=== PATIENT | female | born 1990 ===

== ENCOUNTER 2024-11-19 06:50 | Inpatient (IN) | payer SELFPAY ==
[2024-11-19] MEDS ORDERED: Calcium Carbonate 500 MG Tab.Chew PO PRN (07:42)
[2024-11-19] MEDS ORDERED: Nalbuphine 10 MG/1 ML Vial IVPUSH PRN (07:42)
[2024-11-19] MEDS ORDERED: Sodium Chloride 0.9% 10 ML Syringe FLUSH PRN (07:42)
[2024-11-19] MEDS ORDERED: Ondansetron 4 MG/2 ML SDV IVPUSH PRN (07:42)
[2024-11-19] MEDS: Lactated Ringers 1,000 ML IV SCH (08:24)
[2024-11-19] MEDS: Oxytocin/0.9 % Sodium Chloride 30 UNIT/500 ML BAG IV SCH ×2 (08:28→19:00)
[2024-11-19 08:31] LABS: BASOPHILS PERCENT AUTO 0.4 % (0.0-1.0); EOSINOPHILS ABSOLUTE AUTO 0.1 K/mm3 (0.0-0.4); HEMATOCRIT 29.2 % (37.0-47.0); HEMOGLOBIN 9.2 gm/dl (12.0-16.0); IMMATURE GRAN ABSOLUTE AUTO 0.03 K/mm3 (0.00-0.05); IMMATURE GRAN PERCENT AUTO 0.6 % (0.0-0.4); LYMPHOCYTES ABSOLUTE AUTO 0.8 K/mm3 (1.0-4.8); MEAN CORPUSCULAR HEMOGLOBIN 24.1 pg (28.0-32.0); MEAN CORPUSCULAR HGB CONC 31.5 g/dl (32.0-36.0); MEAN CORPUSCULAR VOLUME 76.6 fl (83.0-99.0); MEAN PLATELET VOLUME 9.3 fl (9.4-12.3); MONOCYTES ABSOLUTE AUTO 0.3 K/mm3 (0.0-0.8); MONOCYTES PERCENT AUTO 6.5 % (0.0-8.0); NEUTROPHILS ABSOLUTE AUTO 3.8 K/mm3 (1.8-7.7); NEUTROPHILS PERCENT AUTO 74.5 % (41.0-71.0); PLATELET COUNT,PLT 240 K/mm3 (150-400); RED BLOOD CELL COUNT 3.81 M/mm3 (4.10-5.30); WHITE BLOOD CELL COUNT,WBC 5.05 K/mm3 (3.9-11.3)
[2024-11-19 14:47] LABS: C. TRACHOMATIS BY PCR NOT DETECTED; N. GONORRHOEAE BY PCR NOT DETECTED
[2024-11-19] MEDS ORDERED: ePHEDrine 50 MG/ML SDV IVPUSH PRN (15:47)
[2024-11-19] MEDS ORDERED: diphenhydrAMINE 50 MG/ML SDV IVPUSH PRN (15:47)
[2024-11-19] MEDS: Bupivacaine/fentaNYL/NS 100 ML Bag EPIDUR PRN (15:56)
[2024-11-19] MEDS: Lidocaine 1% 50 ML MDV INJECT PRN (19:10)
[2024-11-19] MEDS ORDERED: Acetaminophen 325 MG Tab PO PRN (19:55)
[2024-11-19] MEDS ORDERED: Simethicone 80 MG Tab.Chew PO PRN (19:55)
[2024-11-19] MEDS: Benzocaine/Menthol 20%-0.5% Spray 78 GM Cannister TOP PRN (20:37)
[2024-11-19] MEDS: Witch Hazel Medicated Pads 40/Jar TOP PRN (20:37)
[2024-11-19] MEDS: Ibuprofen 600 MG Tab PO SCH (20:38)
[2024-11-19] MEDS: Docusate Sodium 100 MG Cap PO PRN (20:38)
[2024-11-20] MEDS: Ferrous Sulfate 324 MG Tab.EC PO SCH (06:29)
[2024-11-20 07:49] LABS: HEMATOCRIT 30.6 % (37.0-47.0); HEMOGLOBIN 9.6 gm/dl (12.0-16.0); MEAN CORPUSCULAR HEMOGLOBIN 24.6 pg (28.0-32.0); MEAN CORPUSCULAR HGB CONC 31.4 g/dl (32.0-36.0); MEAN CORPUSCULAR VOLUME 78.3 fl (83.0-99.0); MEAN PLATELET VOLUME 9.4 fl (9.4-12.3); PLATELET COUNT,PLT 221 K/mm3 (150-400); RED BLOOD CELL COUNT 3.91 M/mm3 (4.10-5.30)
[2024-11-20] MEDS: Prenatal Multivitamin with Calcium/Folic Acid/Iron Tab PO SCH (08:25)
[2024-11-20] MEDS: Ibuprofen 600 MG Tab PO SCH (12:34)
== END 2024-11-20 20:18 | disposition home or self-care (01) | DRG 807 ==
LOC: JD.OB 06:50 → OBSVTOIN 18:54 → JD.OB 18:55
PROVIDERS: ADMIT Family Medicine; ATTEND Family Medicine
PROC: 3E033VJ Introduction of Other Hormone into Peripheral Vein, Percutaneous Approach (ICD-10-PCS; principal; 2024-11-19)
PROC: 3E0R3BZ Introduction of Anesthetic Agent into Spinal Canal, Percutaneous Approach (ICD-10-PCS; principal; 2024-11-19)
PROC: 0KQM0ZZ Repair Perineum Muscle, Open Approach (ICD-10-PCS; principal; 2024-11-19)
PROC: 10E0XZZ Delivery of Products of Conception, External Approach (ICD-10-PCS; principal; 2024-11-19)
PROC: 10907ZC Drainage of Amniotic Fluid, Therapeutic from Products of Conception, Via Natural or Artificial Opening (ICD-10-PCS; principal; 2024-11-19)
DX: O24.410 Gestational diabetes mellitus in pregnancy, diet controlled (principal); Z37.0 Single live birth; Z3A.39 39 weeks gestation of pregnancy; O99.02 Anemia complicating childbirth; J30.9 Allergic rhinitis, unspecified; Z79.899 Other long term (current) drug therapy
CPT/HCPCS: 36415; 51701; 59025; 59409; 82947; 85025; 85027; 86592; 86850; 86900; 86901; 87491; 87591; A9270-GY; J3490; J7120; J7999